=== PATIENT | female | born 1960 | race Caucasian/White ===

== ENCOUNTER 2018-12-01 13:48 | Emergency (ER) | payer MEDICAID ==
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
== END 2018-12-01 14:36 | disposition home or self-care (01) ==
LOC: ER 13:48
DX: S61.210A Laceration without foreign body of right index finger without damage to nail, initial encounter (principal); W26.0XXA Contact with knife, initial encounter; Y92.009 Unspecified place in unspecified non-institutional (private) residence as the place of occurrence of the external cause
CPT/HCPCS: 12001; 99283

== ENCOUNTER 2018-12-10 12:31 | Emergency (ER) | payer MEDICAID ==
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
== END 2018-12-10 12:57 | disposition home or self-care (01) ==
LOC: ER 12:31
DX: Z48.02 Encounter for removal of sutures (principal)